=== PATIENT | female | born 1990 | race Caucasian/White ===

== ENCOUNTER 2017-09-14 12:25 | Emergency (ER) | payer OTHER ==
--- NOTE | 2017-09-14 12:47 | PDOC ---
Attending Attestation - Resident Resident Name: KeonWard - ED Attending Attestation I have performed the following: I have examined & evaluated the patient, The case was reviewed & discussed with the resident, I agree w/resident's findings & plan, Exceptions are as noted - HPI HPI: 27 yo F presents with extreme anxiety, stating that she has recently been receiving disturbing text messages from her sister. She has not seen her for a few days, but the sister has recently been opening new bank accounts and mentioned meeting a new male friend. Patient received a particularly disturbing message this morning, became extremely upset, began to breathe rapidly, then developed numbness in her hands and feet. She feels better now. She has discussed with [employer] in ED, awaiting a welfare check on her sister. Denies any symptoms at present. - Physicial Exam PE: GENERAL: Awake, alert, and fully oriented, in no acute distress HEAD: No signs of trauma EYES: PERRLA, EOMI, sclera anicteric, conjunctiva clear ENT: Auricles normal inspection, hearing grossly normal, nares patent, oropharynx clear without exudates. Moist mucosa NECK: Normal ROM, supple, no lymphadenopathy, JVD, or masses LUNGS: Breath sounds equal, clear to auscultation bilaterally. No wheezes, and no crackles HEART: Regular rate and rhythm, normal S1 and S2, no murmurs, rubs or gallops ABDOMEN: Soft, nontender, normoactive bowel sounds. No guarding, no rebound. No masses EXTREMITIES: Normal range of motion, no edema. No clubbing or cyanosis. No cords, erythema, or tenderness NEUROLOGICAL: Cranial nerves II through XII grossly intact. Normal speech, normal gait SKIN: Warm, Dry, normal turgor, no rashes or lesions noted. - Medical Decision Making Pt describes numbness and tingling to hands and feet during a time of extreme emotional upset. EKG no acute findings. Stable for DC home.
[2017-09-14 12:49] VITALS: BP 127/86; PULSE 83; TEMP 98.7; BMI 20.9
--- NOTE | 2017-09-14 13:38 | PDOC ---
History of Present Illness - General Chief Complaint: Psychiatric Stated Complaint: ANXIETY Time Seen by Provider: 09/14/17 12:27 History Source: Patient - History of Present Illness Initial Comments: 27F with no pmh presents with sudden palpitation, shallow fast breathing and weakness in the legs after received concerning text messages involving her sister possibly being kidnapped. Police Department has been called and is talking to the patient. Coworkers called in 911 who brought the patient in. PAtient had a remote similar panic attack years ago. No medical problem, doesn't take any medication, no control, doesn't smoke , doesn't drink. Past History - Past Medical History Allergies/Adverse Reactions: Allergies No Known Allergies Allergy (Verified 09/14/17 12:41) Home Medications: Ambulatory Orders NK [No Known Home Medication] 09/14/17 - Immunization History Immunization Up to Date: Yes - Social History Smoking Status: Never smoked *Review of Systems - Review of Systems Constitutional: No: Symptoms Reported HEENTM: No: Symptoms Reported Respiratory: No: Symptoms reported Cardiac (ROS): Yes: Palpitations. No: Chest Pain, Edema, Irregular Heart Rate, Syncope ABD/GI: No: Symptoms Reported : No: Symptoms Reported Musculoskeletal: Yes: Muscle Weakness Integumentary: No: Symptoms Reported All Other Systems: Reviewed and Negative *Physical Exam - Vital Signs Last Vital Signs Temp Pulse Resp BP Pulse Ox 98.7 F 83 22 127/86 96 09/14/17 12:44 09/14/17 12:44 09/14/17 12:44 09/14/17 12:44 09/14/17 12:44 - Physical Exam General Appearance: Yes: Nourished, Appropriately Dressed. No: Apparent Distress, Intoxicated HEENT: positive: EOMI, ETHAN, Normal ENT Inspection Neck: negative: Tender Respiratory/Chest: positive: Lungs Clear, Normal Breath Sounds. negative: Chest Tender, Respiratory Distress Cardiovascular: positive: Regular Rhythm, Regular Rate, S1, S2 Vascular Pulses: Dorsalis-Pedis (R): 3+, Doralis-Pedis (L): 3+ Gastrointestinal/Abdominal: positive: Normal Bowel Sounds, Flat. negative: Tender Musculoskeletal: positive: Normal Inspection. negative: CVA Tenderness Extremity: positive: Normal Capillary Refill, Normal Inspection, Normal Range of Motion Neurologic: positive: Fully Oriented, Alert, Normal Mood/Affect, Normal Response , Motor Strength 5/5 Plan - Progress Note Progress Note: 09/14/17 14:55 Police involved and investigating the case of patient's sister. Patient feels better. not in acute distress. Smiling. Denies danger to herself or other, family and friends with her. PAtient d/c - Order(s) Order(s): Orders Medication Instructions Recorded NK [No Known Home Medication] 09/14/17 Orders last 12 hours Category Date Time Status EKG [ELECTROCARDIOGRAM] [CARD] Stat Cardiology 09/14/17 12:55 Ordered URINALYSIS ([facility] ONLY) Stat Lab 09/14/17 12:54 Ordered Urine [HCG,QUALITATIVE URINE] Stat Lab 09/14/17 12:54 Ordered *DC/Admit/Observation/Transfer Diagnosis at time of Disposition: Panic attack due to exceptional stress - Discharge Dispostion Disposition: HOME Admit: No - Referrals - Patient Instructions Printed Discharge Instructions: Anxiety and Panic Attacks (Alternative Therapy) Additional Instructions: Come back to the Emergency Room for any new, concerning or worsening symptoms - Post Discharge Activity
--- NOTE | 2017-09-15 21:46 | EKG ---
Test Reason : Blood Pressure : / mmHG Vent. Rate : 072 BPM Atrial Rate : 072 BPM P-R Int : 130 ms QRS Dur : 080 ms QT Int : 410 ms P-R-T Axes : 052 073 056 degrees QTc Int : 448 ms NORMAL SINUS RHYTHM WITH SINUS ARRHYTHMIA NORMAL ECG NO PREVIOUS ECGS AVAILABLE Confirmed by NAZARIO SIMPSON, JIMBO ([id number]) on 09/15/2017 9:46:18 PM Referred By: Confirmed By:JIMBO LANGE MD
== END 2017-09-14 15:12 | disposition home or self-care (01) ==
LOC: JER 12:25
DX: F41.0 Panic disorder [episodic paroxysmal anxiety] (principal); F43.8 Other reactions to severe stress
CPT/HCPCS: 93005; 93010; 99282-25

== ENCOUNTER 2017-11-06 11:57 | Emergency (ER) | payer OTHER ==
[2017-11-06 12:17] VITALS: BP 117/74; PULSE 84; TEMP 98.7; BMI 18.9
[2017-11-06] MEDS ORDERED: IBUPROFEN 400 MG TABLET (FP) PO ONE ×2 (13:38→13:43)
--- NOTE | 2017-11-06 13:38 | PDOC ---
History of Present Illness - General Chief Complaint: Toothache Stated Complaint: PAIN Time Seen by Provider: 11/06/17 13:25 History Source: Patient Exam Limitations: No Limitations - History of Present Illness Initial Comments: 11/06/17 14:07 Patient is a 27-year-old female with no past medical history who presents emergency department today complaining of left lower dental pain. Patient states her symptoms began a proximally 3 days ago. She did make an appointment to follow-up with her dentist however her plain was not until Tuesday. She stated the pain got worse so she came in for evaluation. Denies fevers, chills, drainage from the mouth, nausea or vomiting Past History - Travel Traveled outside of the country in the last 30 days: No Close contact w/someone who was outside of country & ill: No - Past Medical History Allergies/Adverse Reactions: Allergies Allergy/AdvReac Type Severity Reaction Status Date / Time No Known Allergies Allergy Verified 11/06/17 12:09 Home Medications: Ambulatory Orders Amox-Tr/K Cl [Augmentin - 875Mg Tablet] 1 tab PO BID #14 tablet 11/06/17 Ibuprofen 800 mg PO TID #30 tablet 11/06/17 COPD: No - Immunization History Immunization Up to Date: Yes - Suicide/Smoking/Psychosocial Hx Smoking History: Never smoked Have you smoked in the past 12 months: No Hx Alcohol Use: No Drug/Substance Use Hx: No Substance Use Type: None Review of Systems - Review of Systems Able to Perform ROS?: Yes Comments:: 11/06/17 23:08 CONSTITUTIONAL: Absent: fever, chills, diaphoresis, generalized weakness, malaise, loss of appetite HEENT: Present: Tooth ache. Absent: rhinorrhea, nasal congestion, throat pain, throat swelling, difficulty swallowing, mouth swelling, ear pain, eye pain, visual Changes CARDIOVASCULAR: Absent: chest pain, loss of consciousness, palpitations, irregular heart rate, peripheral edema RESPIRATORY: Absent: cough, shortness of breath, dyspnea with exertion, orthopnea, wheezing, stridor, hemoptysis SKIN: Absent: rash, itching, pallor NEUROLOGIC: Absent: headache, focal weakness or paresthesias, dizziness, unsteady gait, seizure, mental status changes, bladder or bowel incontinence Is the patient limited Hong Konger proficient: No *Physical Exam - Vital Signs Last Vital Signs Temp Pulse Resp BP Pulse Ox 98.7 F 84 20 117/74 98 11/06/17 12:07 11/06/17 12:07 11/06/17 12:07 11/06/17 12:07 11/06/17 12:07 - Physical Exam Comments: 11/06/17 14:09 GENERAL: The patient is awake, alert, and fully oriented, in no acute distress. HEAD: Normal with no signs of trauma. EYES: Pupils equal, round and reactive to light, extraocular movements intact, sclera anicteric, conjunctiva clear. MOUTH: Erythema to the L lower gum near the 1st molar. No fluctuance or abscess present. Pt is missing first molars b/l EXTREMITIES: Normal range of motion, no edema. NEUROLOGICAL: Normal speech, normal gait. PSYCH: Normal mood, normal affect. SKIN: Warm, Dry, normal turgor, no rashes or lesions noted. Medical Decision Making - Medical Decision Making 11/06/17 14:11 Patient is a 27-year-old female who presents emergency Department with left lower gingival pain. Given erythema cannot rule out infection. We'll treat with Augmentin at this time. Patient to keep follow-up with her primary dentist. *DC/Admit/Observation/Transfer Diagnosis at time of Disposition: Toothache - Discharge Dispostion Disposition: HOME Condition at time of disposition: Good Admit: No - Prescriptions Prescriptions: Amox-Tr/K Cl [Augmentin - 875Mg Tablet] 1 tab PO BID #14 tablet Ibuprofen 800 mg PO TID #30 tablet - Referrals Referrals: Davie Boyle MD [Staff Physician] - - Patient Instructions Printed Discharge Instructions: DI for Dental Pain Additional Instructions: Please take the antibiotics as prescribed (augmentin). Please finish the entire dose even if you feel better. Please take this medication with food. You may take ibuprofen 800 mg 3 times a day as needed for pain, not to exceed 3, 000mg a day You may use warm compresses to the cheek to help with swelling. Please follow up with your dentist tomorrow. Return to the emergency department if you have worsening pain, difficulty swallowing, or any new or worsening symptoms. - Post Discharge Activity Forms/Work/School Notes: Back to Work
== END 2017-11-06 13:44 | disposition home or self-care (01) ==
LOC: JERFT 11:57
DX: K08.89 Other specified disorders of teeth and supporting structures (principal)
CPT/HCPCS: 99281-25

== ENCOUNTER 2018-05-13 18:26 | Emergency (ER) | payer OTHER ==
[2018-05-13 18:40] VITALS: BP 133/71; PULSE 80; TEMP 98.5; BMI 19.2
--- NOTE | 2018-05-13 19:27 | PDOC ---
*Physical Exam - Vital Signs Last Vital Signs Temp Pulse Resp BP Pulse Ox 98.5 F 80 18 133/71 100 05/13/18 18:38 05/13/18 18:38 05/13/18 18:38 05/13/18 18:38 05/13/18 18:38 Medical Decision Making - Medical Decision Making 05/13/18 19:26 Was told by ED staff that patient was seen walking out of ER after being triaged *DC/Admit/Observation/Transfer Diagnosis at time of Disposition: Patient left after triage - Discharge Dispostion Disposition: LEFT BEFORE [facility] - Referrals - Patient Instructions - Post Discharge Activity
== END 2018-05-13 19:41 | disposition left against medical advice (07) ==
LOC: JER 18:26 → JERFT 18:26
DX: Z53.21 Procedure and treatment not carried out due to patient leaving prior to being seen by health care provider (principal)
CPT/HCPCS: 99281-25

== ENCOUNTER 2018-07-06 00:13 | Emergency (ER) | payer OTHER ==
[2018-07-06 00:17] VITALS: BP 106/61; PULSE 124; TEMP 100.1; BMI 18.6
--- NOTE | 2018-07-06 00:39 | PDOC ---
Attending Attestation - HPI HPI: 07/06/18 01:00 The patient is a 28 year old female, with a significant past medical history of , who presents to the ED complaining of pressure when urinating, hematuria and fever. She describes her pain on urination as a sharp pressure. She notes that her fever has been as high as 101 F. She notes that she took Plan B 3 days ago. The patient denies chest pain, shortness of breath, headache and dizziness. Denies chills, nausea, vomiting, diarrhea or constipation. Allergies: None Past surgical history: None reported Social History: No alcohol, tobacco or drug use reported - Physicial Exam PE: 07/06/18 01:01 Constitutional: Awake, alert, oriented. No acute distress. Head: Normocephalic. Atraumatic Eyes: PERRL. EOMI. Conjunctivae are not pale. ENT: Mucous membranes are moist and intact. Posterior pharynx without exudates or erythema. Uvula midline. Neck: Supple. Full ROM. No lymphadenopathy. Cardiovascular: Regular rate. Regular rhythm. S1, S2 regular. Distal pulses are 2+ and symmetric. Pulmonary/Chest: No evidence of respiratory distress. Clear to auscultation bilaterally No wheezing, rales or rhonchi. Abdominal: Soft and non-distended. There is no tenderness. No rebound, guarding or rigidity. No organomegaly. No palpable masses. Good bowel sounds. Back: No CVA tenderness. Musculoskeletal: No edema. No cyanosis. No clubbing. Full range of motion in all extremities. Nocalf tenderness. Radial/pedal pulses are intact and 2+ bilaterally Skin: Skin is warm and dry. No petechiae. No purpura. Neurological: Alert and oriented to person, place, and time. Cranial nerves II -XII are grossly intact. Normal speech. Strength is grossly symmetric. No sensory deficits. Psychiatric: Good eye contact. Normal interaction, affect and behavior. <Gabriele Barron - Last Filed: 07/06/18 01:00> - Resident Resident Name: Ravi Huitron - ED Attending Attestation I have performed the following: I have examined & evaluated the patient, The case was reviewed & discussed with the resident, I agree w/resident's findings & plan, Exceptions are as noted - Medical Decision Making 07/06/18 00:39 I, Dr. Adelina Kumar, DO, attest that this document has been prepared under my direction and personally reviewed by me in its entirety. I further attest, that it accurately reflects all work, treatment, procedures and medical decision -making performed by me. 07/06/18 01:18 28yo female with hematuria/lower back pain today and urinary pressure sensation -concern for UTI, however took plan B on tuesday and has not had vaginal bleeding -pt with chills earlier tonight -concern for intravag infection vs uti -will send labs, cultures, ua, ucx, beta, tvus and pelvis ultrasound -will monitor and reassess -ivf hydration and iv tylenol for the fever <Adelina Kumar - Last Filed: 07/06/18 01:20> Heart Score/ECG Review - ECG Intrepretation Comment:: 07/06/18 01:20 sinus tach at 102, nl axis, nl interval, no acute st/t wave findings <Adelina Kumar - Last Filed: 07/06/18 01:20>
--- NOTE | 2018-07-06 01:06 | PDOC ---
History of Present Illness - General Chief Complaint: Urinary Problem Stated Complaint: URINARY PROBLEM History Source: Patient - History of Present Illness Initial Comments: The patient is a 28F w/ no reported PMH who presents with 1d of dysuria and hematuria. The patient endorses associated fevers/chills today. She reports that the pain is sharp/pressure that radiates towards her back. She has never had this happen before. Her LMP was 06/19/2018. She reports taking Plan B 2d ago. She denies CONDE, vision changes, chest pain, SOB, abdominal pain, or changes in sensation. 07/06/18 02:02 Past History - Past Medical History Allergies/Adverse Reactions: Allergies Allergy/AdvReac Type Severity Reaction Status Date / Time No Known Allergies Allergy Verified 07/06/18 00:17 Home Medications: Ambulatory Orders Cephalexin Monohydrate [Keflex -] 500 mg PO BID 7 Days #14 capsule 07/06/18 COPD: No - Immunization History Immunization Up to Date: Yes - Suicide/Smoking/Psychosocial Hx Smoking History: Never smoked Have you smoked in the past 12 months: No Hx Alcohol Use: No Drug/Substance Use Hx: No Substance Use Type: None Review of Systems - Review of Systems Able to Perform ROS?: Yes Comments:: GENERAL/CONSTITUTIONAL: No fever or chills. No weakness HEAD, EYES, EARS, NOSE AND THROAT: No change in vision. No ear pain or discharge. No sore throat CARDIOVASCULAR: No chest pain or shortness of breath RESPIRATORY: No cough, wheezing, or hemoptysis GASTROINTESTINAL: No nausea, vomiting, diarrhea or constipation GENITOURINARY: per HPI MUSCULOSKELETAL: No joint or muscle swelling or pain. No neck or back pain SKIN: No rash NEUROLOGIC: No headache, vertigo, loss of consciousness, or change in strength/ sensation ENDOCRINE: No increased thirst. No abnormal weight change HEMATOLOGIC/LYMPHATIC: No anemia, easy bleeding, or history of blood clots ALLERGIC/IMMUNOLOGIC: No hives or skin allergy 07/06/18 02:04 Is the patient limited Khmer proficient: No *Physical Exam - Vital Signs Last Vital Signs Temp Pulse Resp BP Pulse Ox 100.1 F H 124 H 18 106/61 99 07/06/18 00:14 07/06/18 00:14 07/06/18 00:14 07/06/18 00:14 07/06/18 00:14 - Physical Exam Comments: GENERAL: Awake, alert, and fully oriented, in no acute distress HEAD: No signs of trauma, normocephalic, atraumatic EYES: PERRL, EOMI, sclera anicteric, conjunctiva clear ENT: Hearing grossly normal, nares patent, oropharynx clear without exudates. Moist mucosa NECK: Normal ROM, supple, no lymphadenopathy LUNGS: No distress, speaks full sentences, clear to auscultation bilaterally HEART:Regular rate and rhythm, normal S1 and S2, no murmurs appreciated, peripheral pulses normal and equal bilaterally ABDOMEN: Soft, nontender, normoactive bowel sounds. No guarding, no rebound. No masses EXTREMITIES : Normal inspection, Normal range of motion, no edema. No clubbing or cyanosis NEUROLOGICAL: Cranial nerves II through XII grossly intact. Normal speech, normal gait, no focal sensorimotor deficits SKIN: Warm, Dry, normal turgor, no rashes or lesions noted 07/06/18 02:04 ED Treatment Course - LABORATORY CBC & Chemistry Diagram: 07/06/18 01:00 07/06/18 01:00 Medical Decision Making - Medical Decision Making The patient is a 28F with no reported PMH who presents with 1d of dysuria and hematuria concerning for UTI ED Course CMP, CBC, Beta-quant, T/S, Lactate, UA, UCx ECG Pelvic US/Transabdominal US 07/06/18 02:05 UA w/ 1+ blood and 1+LE No leukocytosis Ofirmev 1g IV once for pain 1L NS for resuscitation Lactate 1.4 07/06/18 02:15 Will Rx Keflex 500mg PO BID for 7d to pharmacy Plan for D/C Pt was provided written discharge instructions. Additional verbal instructions were given and discussed with Pt Pt was asked to return to the ED immediately for any new or concerning or if they worsen. Pt was in agreement, endorsed understanding, and questions were answered. Dispo: home w/ abx and PCP f/u 07/06/18 04:25 *DC/Admit/Observation/Transfer Diagnosis at time of Disposition: UTI (urinary tract infection) Qualifiers: Urinary tract infection type: acute cystitis Hematuria presence: with hematuria Qualified Code(s): N30.01 - Acute cystitis with hematuria - Discharge Dispostion Disposition: HOME Condition at time of disposition: Stable Decision to Admit order: No - Prescriptions Prescriptions: Cephalexin Monohydrate [Keflex -] 500 mg PO BID 7 Days #14 capsule - Referrals Referrals: [facility] [Provider Group] - Patient Instructions Printed Discharge Instructions: DI for Urinary Tract Infection (UTI) - Post Discharge Activity
[2018-07-06] MEDS ORDERED: ACETAMINOPHEN 1000 MG/100 ML VIAL (NON FORMULARY) IVPB ONE (01:15)
[2018-07-06] MEDS ORDERED: SODIUM CHLORIDE 0.9% 1000 ML INFUS.BAG IV ONE (01:15)
[2018-07-06 01:33] LABS: BASO % 0.4 % (0-2.0); HEMATOCRIT 37.7 % (32.4-45.2); HEMOGLOBIN 12.9 GM/dL (10.7-15.3); LYMPH % 2.4 % (8-40); MCH 29.6 pg (25.7-33.7); MCHC 34.2 g/dl (32.0-36.0); MEAN CELL VOLUME 86.5 fl (80-96); MEAN PLT VOLUME 8.6 fl (7.5-11.1); MONO % 4.2 % (3.8-10.2); PLATELET COUNT 171 K/MM3 (134-434); RBC 4.35 M/mm3 (3.60-5.2); WHITE BLOOD COUNT 13.8 K/mm3 (4.0-10.0)
[2018-07-06 01:34] LABS: VENOUS PC02 37.8 mmHg (38-52); VENOUS PH 7.41 (7.32-7.42)
[2018-07-06 01:35] LABS: VENOUS PO2 93.5 mmHg (28-48)
[2018-07-06] MEDS ORDERED: ACETAMINOPHEN INJECTION 100 ML IVPB ONE (01:54)
[2018-07-06 02:03] LABS: INR 1.19 (0.83-1.09); PROTHROMBIN TIME (PATIENT) 13.4 SEC (9.7-13.0)
[2018-07-06 02:05] LABS: ACTIVATED PTT 29.1 SECONDS (25.2-36.5)
[2018-07-06 02:07] LABS: URINE APPEARANCE SLCLOUDY; URINE BILIRUBIN NEGATIVE (<2.0 mg/dL); URINE COLOR YELLOW; URINE GLUCOSE (UA) NEGATIVE (NEGATIVE); URINE KETONE NEGATIVE (NEGATIVE); URINE NITRITE NEGATIVE (NEGATIVE); URINE PROTEIN NEGATIVE (NEGATIVE); URINE UROBILINOGEN 4.0 E.U/dl mg/dL (0.2-1.0)
[2018-07-06 02:08] LABS: URINE LEUK ESTERASE 1+ (NEGATIVE)
[2018-07-06 02:10] LABS: ALBUMIN 3.7 g/dl (3.4-5.0); ALK PHOS 38 U/L (45-117); ANION GAP 7 MMOL/L (8-16); BILIRUBIN,TOTAL 0.6 mg/dL (0.2-1.0); BLOOD UREA NITROGEN 17 mg/dL (7-18); CALCIUM 8.1 mg/dL (8.5-10.1); CHLORIDE 102 mmol/L (98-107); CO2 27 mmol/L (21-32); CREATININE 0.8 mg/dL (0.55-1.02); GLUCOSE,RANDOM 96 mg/dL (74-106); POTASSIUM 3.6 mmol/L (3.5-5.1); SGOT/AST 18 U/L (15-37); SGPT/ALT 12 U/L (13-61); SODIUM 136 mmol/L (136-145); TOT PROT 7.2 g/dl (6.4-8.2)
[2018-07-06 02:19] LABS: EPI CELLS FEW /HPF (FEW); URINE BACTERIA FEW /hpf (NONE SEEN); URINE HYALINE CAST 2 /lpf; URINE MUCUS RARE
[2018-07-06 02:47] LABS: PLATELET ESTIMATE ADEQUATE
--- NOTE | 2018-07-06 15:37 | EKG ---
Test Reason : Blood Pressure : / mmHG Vent. Rate : 102 BPM Atrial Rate : 102 BPM P-R Int : 132 ms QRS Dur : 076 ms QT Int : 332 ms P-R-T Axes : 072 074 071 degrees QTc Int : 432 ms POOR DATA QUALITY, INTERPRETATION MAY BE ADVERSELY AFFECTED SINUS TACHYCARDIA POSSIBLE LEFT ATRIAL ENLARGEMENT BORDERLINE ECG WHEN COMPARED WITH ECG OF 14-SEP-2017 13:38, NO SIGNIFICANT CHANGE WAS FOUND Confirmed by CHAS SIMPSON, DENISHA ([id number]) on 07/06/2018 3:37:06 PM Referred By: Confirmed By:DENISHA DOHERTY MD
== END 2018-07-06 04:40 | disposition home or self-care (01) ==
LOC: JER 00:13
PROC: 3E033NZ Introduction of Analgesics, Hypnotics, Sedatives into Peripheral Vein, Percutaneous Approach (ICD-10-PCS; principal; 2018-07-06)
DX: N30.01 Acute cystitis with hematuria (principal)
CPT/HCPCS: 36415; 71045-TC-FY; 76830-TC; 80053; 81003; 81015; 82803; 83605; 84702; 85025; 85610; 85730; 86850; 86900; 86901; 87040; 87086; 87186; 93005; 93010; 99281-25; J0131; J7030